=== PATIENT | male | born 1960 | race Hispanic/Latino ===

== ENCOUNTER 2017-12-05 17:34 | Emergency (ER) | payer MEDICARE, OTHER ==
[2017-12-05 18:04] VITALS: BP 142/89; PULSE 82; RESP 18; TEMP 98.1; O2SAT 96
[2017-12-05] MEDS ORDERED: Oxycodone/Acetaminophen 5/325 mg Tab PO STA (19:02)
--- NOTE | 2017-12-05 19:07 | ED PDOC ---
Upper Extremity Pain/Injury Time Seen by Provider: 12/05/17 18:23 Chief Complaint (Nursing): Upper Extremity Problem/Injury Chief Complaint (Provider): Left hand injury History Per: Patient History/Exam Limitations: no limitations Onset/Duration Of Symptoms: Mins Current Symptoms Are (Timing): Still Present Additional History Per: Patient Additional Complaint(s): 57 year old male presents to the ER with left hand pain and swelling. Patients reports bumping his hand on the fridge after he slipped and fell at home. Patient reports no other medical complaints. Past Medical History Reviewed: Historical Data, Nursing Documentation, Vital Signs Vital Signs: Last Vital Signs Temp 98.1 F 12/05/17 18:02 Pulse 82 12/05/17 18:02 Resp 18 12/05/17 18:02 BP 142/89 12/05/17 18:02 Pulse Ox 96 12/05/17 18:02 - Medical History PMH: Diabetes, HTN, Hypercholesterolemia, Hyperlipidemia - Family History Family History: States: Unknown Family Hx - Social History Alcohol: Social - Home Medications Home Medications: Ambulatory Orders Medication Instructions Recorded oxyCODONE/Acetaminophen [Percocet 1 ea PO Q6H PRN #10 tab 12/05/17 5/325 mg Tab] - Allergies Allergies/Adverse Reactions: Allergies Allergy/AdvReac Type Severity Reaction Status Date / Time No Known Allergies Allergy Verified 12/05/17 18:02 Review of Systems ROS Statement: Except As Marked, All Systems Reviewed And Found Negative Musculoskeletal: Positive for: Hand Pain (left; swelling) Physical Exam - Reviewed Nursing Documentation Reviewed: Yes Vital Signs Reviewed: Yes - Physical Exam Appears: Positive for: No Acute Distress Head Exam: Positive for: ATRAUMATIC, NORMAL INSPECTION, NORMOCEPHALIC Skin: Positive for: Normal Color, Warm, DRY Eye Exam: Positive for: Normal appearance Neck: Positive for: Normal, Supple Cardiovascular/Chest: Positive for: Regular Rate, Rhythm. Negative for: Murmur Respiratory: Positive for: Normal Breath Sounds. Negative for: Respiratory Distress Extremity: Positive for: Tenderness (to the distal fourth and fifth metacarpal ) , Swelling (to the distal fourth and fifth metacarpal ), Other (Erythema to left hand) Neurologic/Psych: Positive for: Alert, Oriented - ECG O2 Sat by Pulse Oximetry: 96 (RA) Pulse Ox Interpretation: Normal Medical Decision Making Medical Decision Making: Time: 18:32 Plan: --Percocet 1 tab PO --X-Ray Left Hand X-Ray: After reviewing the X-Ray, patient determined to have a displaced fracture to the distal tip of the fifth metacarpal. 19:02 Patient placed in an ulnar gutter splint on his left hand and instructed to follow-up with hand specialist. Scribe Attestation: Documented by Estela Vogt, acting as a scribe for Latosha Bucio PA-C Provider Scribe Attestation: All medical record entries made by the Scribe were at my direction and personally dictated by me. I have reviewed the chart and agree that the record accurately reflects my personal performance of the history, physical exam, medical decision making, and the department course for this patient. I have also personally directed, reviewed, and agree with the discharge instructions and disposition. Disposition - Clinical Impression Clinical Impression: Closed fracture of 5th metacarpal - Patient ED Disposition Is Patient to be Admitted: No Counseled Patient/Family Regarding: Diagnosis, Need For Followup, Rx Given - Disposition Referrals: Audrey Méndez MD [Staff Provider] - Disposition: Routine/Home Disposition Time: 19:39 Condition: GOOD Prescriptions: oxyCODONE/Acetaminophen [Percocet 5/325 mg Tab] 1 ea PO Q6H PRN #10 tab PRN Reason: Pain, Severe (8-10) Instructions: Hand Fracture (DC) Forms: [employer] (Macedonian)
--- NOTE | 2017-12-06 11:43 | RAD ---
PROCEDURE: Left Hand Radiographs. HISTORY: hand pain, fall, 4th and 5th metacarpal COMPARISON: None. FINDINGS: BONES: There is a comminuted impacted fracture of the distal 5th metacarpal bone without dislocation. No additional fracture identified throughout the remainder of the left hand. Local soft tissue edema is seen at the fracture site. [id number] degenerative cortical sclerosis appreciate throughout the distal greater than proximal interphalangeal joints diffusely as well as incidentally at the radial side of the carpal carpal articulations. JOINTS: As above SOFT TISSUES: As above OTHER FINDINGS: None. IMPRESSION: Left 5th metacarpal boxer's fracture as discussed above. Comminution is noted without dislocation. Limited degenerative changes seen in the digits diffusely as well as the radial carpus, incidentally.
== END 2017-12-05 20:00 | disposition home or self-care (01) ==
LOC: H.ER 17:34
DX: S62.307A Unspecified fracture of fifth metacarpal bone, left hand, initial encounter for closed fracture (principal); W01.198A Fall on same level from slipping, tripping and stumbling with subsequent striking against other object, initial encounter

== ENCOUNTER 2018-10-12 18:50 | Emergency (ER) | payer MEDICARE, OTHER ==
[2018-10-12 19:13] VITALS: RESP 18
--- NOTE | 2018-10-12 20:12 | ED PDOC ---
Upper Extremity Pain/Injury Time Seen by Provider: 10/12/18 19:13 Chief Complaint (Nursing): Upper Extremity Problem/Injury Chief Complaint (Provider): Right Shoulder Pain History Per: Patient History/Exam Limitations: no limitations Onset/Duration Of Symptoms: Days (x5 weeks) Current Symptoms Are (Timing): Still Present Additional Complaint(s): 58 year old male presents to the ED for evaluation s/p a slip and fall on a freshly mopped floor five weeks ago. Patient reports falling on his right side and has since had continuous right shoulder pain worse with abduction and unresolved with wearing a sling. Otherwise denies head and other subsequent injuries. PMD: none provided Past Medical History Reviewed: Historical Data, Nursing Documentation, Vital Signs Vital Signs: Last Vital Signs Temp 98.5 F 10/12/18 19:10 Pulse 73 10/12/18 19:10 Resp 18 10/12/18 19:10 BP 123/75 10/12/18 19:10 Pulse Ox 95 10/12/18 19:10 - Medical History PMH: Diabetes, HTN, Hypercholesterolemia, Hyperlipidemia - Surgical History Surgical History: No Surg Hx - Family History Family History: States: Unknown Family Hx - Social History Current smoker - smoking cessation education provided: Yes (light) Alcohol: Social Drugs: Denies - Home Medications Home Medications: Ambulatory Orders Medication Instructions Recorded oxyCODONE/Acetaminophen [Percocet 1 ea PO Q6H PRN #10 tab 12/05/17 5/325 mg Tab] - Allergies Allergies/Adverse Reactions: Allergies Allergy/AdvReac Type Severity Reaction Status Date / Time No Known Allergies Allergy Verified 10/12/18 19:10 Review of Systems ROS Statement: Except As Marked, All Systems Reviewed And Found Negative Musculoskeletal: Positive for: Shoulder Pain (right, worse with movement) Physical Exam - Reviewed Nursing Documentation Reviewed: Yes Vital Signs Reviewed: Yes - Physical Exam Appears: Positive for: No Acute Distress Head Exam: Positive for: ATRAUMATIC, NORMOCEPHALIC Skin: Positive for: Normal Color Neck: Positive for: Normal, Painless ROM Cardiovascular/Chest: Positive for: Regular Rate, Rhythm Respiratory: Positive for: Normal Breath Sounds. Negative for: Respiratory Distress Back: Positive for: Normal Inspection Extremity: Positive for: Tenderness (mild tenderness over superior and lateral aspects of right shoulder). Negative for: Normal ROM (decreased ROM secondary to pain: pain with abduction at 45 degrees of right shoulder) - ECG O2 Sat by Pulse Oximetry: 95 (RA) Pulse Ox Interpretation: Normal Medical Decision Making Medical Decision Making: Time: 1946 Initial Impression: shoulder pain Initial Plan: --Right shoulder XR --Patient denied pain medications in ED 2030 XR read as having calcific tendonitis, but no acute fracture or dislocation. Patient informed that if there is a discrepancy from the official read, he will be notified. Recommended to follow up with ortho for further treatment. Patient stable for discharge at this time. Scribe Attestation: Documented by Sofia Santos, acting as a scribe for Isabel Noland PA-C. Provider Scribe Attestation: All medical record entries made by the Scribe were at my direction and personally dictated by me. I have reviewed the chart and agree that the record accurately reflects my personal performance of the history, physical exam, medical decision making, and the department course for this patient. I have also personally directed, reviewed, and agree with the discharge instructions and disposition. Disposition - Clinical Impression Clinical Impression: Shoulder pain - Disposition Referrals: Salvador Omer MD [Staff Provider] - Disposition: Routine/Home Disposition Time: 21:18 Condition: STABLE Instructions: Shoulder Pain (DC) Forms: [employer] (Lao)
[2018-10-12 21:05] VITALS: BP 116/59; PULSE 75; TEMP 98.3
[2018-10-12 21:17] VITALS: O2SAT 95
--- NOTE | 2018-10-13 16:35 | RAD ---
Date of service: 10/12/2018 PROCEDURE: Radiographs of the Right Shoulder HISTORY: pain COMPARISON: No prior. FINDINGS: BONES: No evidence of acute displaced fracture nor dislocation. 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 SOFT TISSUES: Normal. OTHER FINDINGS: None. IMPRESSION: No evidence of acute displaced fracture nor dislocation. Minor degenerative osteoarthritis
== END 2018-10-12 21:04 | disposition home or self-care (01) ==
LOC: H.ER 18:50
DX: M25.511 Pain in right shoulder (principal)